=== PATIENT | female | born 1960 | race Caucasian/White ===

== ENCOUNTER 2016-12-19 07:49 | Outpatient (CLI) ==
--- NOTE | 2016-12-19 09:22 | CT ---
EXAM: CT ABDOMEN AND PELVIS HISTORY: Left upper quadrant abdominal pain, weight loss TECHNIQUE: CT abdomen and pelvis with intravenous contrast. Images were reconstructed using 5 mm se ction thickness. Reformations were prepared. 75 mL Omnipaque. COMPARISON: None FINDINGS: No focal hepatic or splenic lesions. No obvious gallbladder pathology. Pancreas and adrenal glands appear normal. Unremarkable kidneys. Mild atherosclerotic disease of the aorta. The gastric rugae appear thickened. Cannot exclude at least one nodular focus of thickening of the gastric mucosa posteriorly, level of the body. No gastric distension is seen. Normal appendix and general bowel gas pattern. Loss of haustral folds and increased submucosal fat deposition in the de scending colon. Cannot exclude subtle pericolic fat stranding near the splenic flexure. Uterus and urinary bladder are within normal limits. Prominent periuterine venous complex. No ascites. No abdominal wall hernia. There is a left breast mass or collection measuring 2.8 x 5.2 cm. No acu te bony finding. Lung bases reveal two tiny micro nodules at the left costophrenic angle which are noncalcified. No pneumoperitoneum. IMPRESSION: 1. The gastric rugae appear thickened. Cannot exclude at least one nodular focus of thickening of the gastric mucosa posteriorly, level of the body (questionable polyp). Consider gastritis. Further workup could include endoscopy or upper GI series. 2. Questionable subtle colitis of the descending colon beginning at the splenic flexure. Normal shubham wel gas pattern. No ascites or free air. 3. Left breast mass or collection. This could represent a post biopsy seroma or hematoma. Correla te with patient history. 3. There are two tiny indeterminate micro nodules left costophrenic angle. Consider follow-up CT t horax given the patient's history.
--- NOTE | 2016-12-19 10:51 | DI ---
Examination: Two radiographic images of the chest. Comparison: None available. Reason for study: Weight loss with congestion. FINDINGS: The lungs appear hyperinflated. There is no flattening of the diaphragms. No pneumothor ax, pleural effusion, or focal consolidation. The cardiac silhouette is not enlarged. Impression: No acute cardiopulmonary findings.
== END 2016-12-19 07:50 | disposition home or self-care (01) ==
LOC: RAD 07:49
PROVIDERS: ATTEND Internal Medicine
DX: R10.12 Left upper quadrant pain (principal); R10.13 Epigastric pain; R63.4 Abnormal weight loss; Z68.1 Body mass index [BMI] 19.9 or less, adult; R63.0 Anorexia

== ENCOUNTER 2017-12-11 08:31 | Outpatient (CLI) ==
--- NOTE | 2017-12-11 10:14 | CT ---
EXAM: CT scan thorax with contrast HISTORY: Follow-up pulmonary nodule COMPARISON: CT scan abdomen pelvis 12/19/2016 FINDINGS: Contiguous axial images obtained through the thorax following uneventful administration of intravenous contrast utilizing 5-mm collimation. Sagittal and coronal reconstructions were imaged a nd reviewed.. The thoracic inlet is unremarkable. There is no evidence of hilar mediastinal lymphad enopathy. The heart is normal in size without pericardial effusion.. Pneumopleural scarring is note d at both apices.. Redemonstrated are several tiny nodules laterally at the left lung base.. Multip le scattered foci of pleural thickening both upper lobes which is nonspecific and merits follow-up. There is relatively stable complex collection within the left breast measuring 5.3 x 3.2 cm.. Bone w indows reveals no evidence of lytic or blastic lesions in the visualized upper abdominal structures a re unremarkable. IMPRESSION: Stable tiny nodules left lung base. Scattered foci of tiny nodular pleural thickening bilaterally which merits follow-up.
== END 2017-12-11 08:32 | disposition home or self-care (01) ==
LOC: RAD 08:31
PROVIDERS: ATTEND Internal Medicine
DX: R91.1 Solitary pulmonary nodule (principal); R07.9 Chest pain, unspecified; R05 Cough
CPT/HCPCS: 36415; 82565